=== PATIENT | male | born 1985 | race Caucasian/White ===

== ENCOUNTER 2021-04-16 18:52 | Emergency (ER) | payer MEDICARE, MEDICAID, SELFPAY ==
--- NOTE | ~2021-04-16 | XR_ITS ---
XR chest 1V portable DATE: 04/16/2021 19:26 INDICATION: Shortness of breath, fever, chills TECHNIQUE: Portable upright AP chest on 04/16/2021 at 1918 hours COMPARISON: None FINDINGS: This is a limited portable kyphotic AP chest. No pulmonary infiltrate or consolidation, pleural effusion or pulmonary vascular congestion or pneumo thorax is detected. There is thoracolumbar scoliosis. IMPRESSION: No active disease detected Reviewed, dictated and finalized at location A. IMPRESSION: No active disease detected
[2021-04-16 18:50] VITALS: BP 109/68; PULSE 128; RESP 22; TEMP 39.2; O2SAT 95
[2021-04-16 19:37] LABS: Basophils Percent Auto 0.5 % (0.2-1.2); Hematocrit 39.5 % (42.0-52.0); Hemoglobin 13.4 g/dL (14.0-18.0); Immature Granulocyte Absolute 0.01 K/mm3 (0.00-0.031); Immature Granulocyte Percent A 0.5 % (0-0.5); Lymphocytes Absolute Auto 0.32 K/mm3 (0.9-3.2); Lymphocytes Percent Auto 16.3 % (18.3-44.2); Mean Corpuscular HGB Conc 33.9 g/dl (32-36); Mean Corpuscular Hemoglobin 30.3 pg (26-34); Mean Corpuscular Volume 89.4 fl (80-100); Mean Platelet Volume 9.7 fl (7.4-10.4); Monocytes Absolute Auto 0.2 K/mm3 (0.1-0.6); Monocytes Percent Auto 8.7 % (2.6-8.5); Neutrophils Absolute Auto 1.5 K/mm3 (1.3-6.7); Platelet Count Result 112 k/mm3 (150-375); Red Blood Count 4.42 M/mm3 (4.6-6.20); Red Cell Distribution Width 11.9 % (11.5-14.5)
[2021-04-16 19:43] VITALS: BP 110/71; PULSE 111; RESP 20; O2SAT 96
[2021-04-16 19:46] LABS: Alanine Aminotransferase 24 U/L (4-50); Albumin Level 3.8 g/dL (3.5-5.1); Alkaline Phosphatase 45 U/L (38-126); Anion Gap 5 mmol/L (8-16); Aspartate Amino Transferase 54 U/L (17-59); Bilirubin,Total 0.8 mg/dL (0.2-1.3); Blood Urea Nitrogen 25 mg/dL (9-20); Calcium 8.2 mg/dL (8.4-10.2); Carbon Dioxide 27 mmol/L (22-30); Chloride 103 mmol/L (98-107); Estimated Glomerular Filt Rate > 60; Glucose 130 mg/dL (65-110); Potassium 4.3 mmol/L (3.4-5.0); Sodium 135 mmol/L (137-145)
[2021-04-16 19:59] LABS: CRP 1.9 mg/dL (<1.0)
[2021-04-16 20:11] LABS: EDCOVIDSCREEN Positive (Negative)
[2021-04-16 20:40] VITALS: BP 101/72; PULSE 101; RESP 20; TEMP 37.4; O2SAT 97
--- NOTE | 2021-04-16 21:31 | ED.GENADULT ---
HPI - General Adult General Chief complaint: Upper Respiratory Infection Stated complaint: covid + Time Seen by Provider: 04/16/21 18:53 Source: family Mode of arrival: EMS Limitations: clinical condition History of Present Illness HPI narrative: 35-year-old with a history of autism was brought in by mom with complaints of weakness, shortness of breath. Mom states that he was having Covid symptoms since Wednesday she went and got outpatient testing kit from [facility] and he was positive. Patient has not been vaccinated. Patient denies any chest pain has occasional cough. No history of nausea or vomiting. Mom states that he does not eat on a daily basis he once in every 5 days. But however she make sure that he gets milkshakes and peanut butter. Onset (ago): day(s) (1) Associated symptoms: fever/chills Related Data Home Medications Medication Instructions Recorded Confirmed azithromycin 04/16/21 04/16/21 escitalopram oxalate mg 04/16/21 Allergies Allergy/AdvReac Type Severity Reaction Status Date / Time Penicillins Allergy Rash Verified 04/16/21 19:07 Review of Systems Review of Systems: ROS unobtainable: Yes unobtainable due to medical condition Exam Narrative: GENERAL: Well-appearing, thin and pale, and in no acute distress. HEAD: Normocephalic, atraumatic. EYES: PERRLA and EOMI. ENT: Nares clear, no rhinorrhea or epistaxis. Mucous membranes moist. NECK: Supple. CHEST: Clear to auscultation. No respiratory distress. HEART: Regular rate and rhythm. No murmur heard. Normal peripheral pulses. ABDOMEN: Soft, nontender, nondistended, normal active bowel sounds. EXTREMITIES: Normal range of motion. No edema.marked scoliosis SKIN: Warm, dry, no rash. NEURO: No focal deficits. PSYCH: Normal mood and affect. Course Course Emergency Course: Inform mother about his lab work, x-ray findings. His heart rate has come down from 120s to 87. He is feeling much better after IV fluids and Tylenol. Advised her to continue Tylenol as needed for fever. Encourage oral liquids. Vital Signs Vital signs: Vital Signs Temperature 39.2 C H 04/16/21 18:50 Pulse Rate 128 H 04/16/21 18:50 Respiratory Rate 22 H 04/16/21 18:50 Blood Pressure 109/68 04/16/21 18:50 Pulse Oximetry 95 04/16/21 18:50 Temperature 37.4 C 04/16/21 20:40 Pulse Rate 101 H 04/16/21 20:40 Respiratory Rate 20 04/16/21 20:40 Blood Pressure 101/72 04/16/21 20:40 Pulse Oximetry 97 04/16/21 20:40 Medical Decision Making Vital Signs Vital Signs: Vital Signs Temperature 39.2 C H 04/16/21 18:50 Pulse Rate 128 H 04/16/21 18:50 Respiratory Rate 22 H 04/16/21 18:50 Blood Pressure 109/68 04/16/21 18:50 Pulse Oximetry 95 04/16/21 18:50 Temperature 37.4 C 04/16/21 20:40 Pulse Rate 101 H 04/16/21 20:40 Respiratory Rate 20 04/16/21 20:40 Blood Pressure 101/72 04/16/21 20:40 Pulse Oximetry 97 04/16/21 20:40 Lab Data Result diagrams: 04/16/21 19:28 04/16/21 19:28 Labs: Lab Results 04/16/21 04/16/21 04/16/21 Range/Units 19:28 19:28 19:28 WBC 2.0 L (4.5-10.0) K/mm3 RBC 4.42 L (4.6-6.20) M/mm3 Hgb 13.4 L (14.0-18.0) g/dL Hct 39.5 L (42.0-52.0) % MCV 89.4 (80-100) fl MCH 30.3 (26-34) pg MCHC 33.9 (32-36) g/dl RDW 11.9 (11.5-14.5) % Plt Count 112 L (150-375) k/mm3 MPV 9.7 (7.4-10.4) fl Immature Gran % (Auto) 0.5 (0-0.5) % Neut % (Auto) 74.0 H (45.5-73.1) % Lymph % (Auto) 16.3 L (18.3-44.2) % [place] % (Auto) 8.7 H (2.6-8.5) % Eos % (Auto) 0.0 (0-4.4) % Baso % (Auto) 0.5 (0.2-1.2) % Lymph # (Auto) 0.32 L (0.9-3.2) K/mm3 [place] # (Auto) 0.2 (0.1-0.6) K/mm3 Eos # (Auto) 0.0 (0-0.3) K/mm3 Baso # (Auto) 0.0 (0.0-0.1) K/mm3 Abs Immat Gran (auto) 0.01 (0.00-0.031) K/mm3 Absolute Neuts (auto) 1.5 (1.3-6.7) K/mm3 Absolute Nucleated RBC 0.0 (0.0-0.012) K/mm3 Nu
[2021-04-16 21:40] VITALS: BP 110/70; PULSE 87; RESP 20; O2SAT 99
== END 2021-04-17 01:16 | disposition home or self-care (01) ==
PROVIDERS: Emergency Provider Family Medicine; PCP Internal Medicine
DX: U07.1 COVID-19 (principal); F84.0 Autistic disorder
CPT/HCPCS: 36415; 71045; 80053; 85025; 86140; 87426; 99283; C9803

== ENCOUNTER 2024-01-31 14:44 | Emergency (ER) | payer MEDICARE, MEDICAID, SELFPAY ==
--- NOTE | ~2024-01-31 | XR_ITS ---
EXAM: XR tibia fibula LT 2V DATE: 01/31/2024 17:42 HISTORY: cellulitis, wound on posterior lower leg near ankle . COMPARISON: None available. FINDINGS: Normal mineralization. No fracture or dislocation. No lytic or blastic lesion. Joint space s are maintained. No erosion or periosteal change. Soft tissues within normal limits. The posterior l ower leg soft tissues are excluded from the [id number]. IMPRESSION: No acute osseous finding in the left tibia/fibula. Reviewed, dictated and finalized at location K.
[2024-01-31 14:45] VITALS: BP 124/72; PULSE 94; RESP 16; TEMP 37.1; O2SAT 100
--- NOTE | 2024-01-31 17:23 | ED.WOUNDLAC ---
HPI - Wound/Laceration General Chief Complaint: Wound/Laceration Stated Complaint: wound to left leg Time Seen by Provider: 01/31/24 17:01 History of Present Illness HPI narrative: 38-year-old male with history of autism in OCD presents with his mother/linecasting machine keyboard operator who presents from home with concerns for a wound to his left leg for 3 weeks. Patient's mother provides the following history. States a few weeks ago she noticed the patient had a wound to the back of his left lower leg which she believes he may have gotten from scratching his leg with his toenails. States she went to urgent care on 01/23/2024 and was prescribed Keflex with the patient has been taking without improvement. States she believes that the wound is getting worse. It is now draining clear yellow fluid. She also states that yesterday the patient broke out in a diffuse itchy rash throughout his chest, abdomen and upper extremities. She gave him Benadryl believes it is secondary to the Keflex. He does have an allergy to penicillins. Patient states he otherwise feels fine. He and his mother deny fever, nausea or vomiting, abdominal pain, other signs or symptoms of infection. Related Data Home Medications Medication Instructions Recorded Confirmed azithromycin 250 mg tablet 04/16/21 04/16/21 escitalopram oxalate 10 mg tablet mg 04/16/21 Allergies Allergy/AdvReac Type Severity Reaction Status Date / Time Penicillins Allergy Rash Verified 04/16/21 19:07 Review of Systems Review of Systems: CONSTITUTIONAL: Denies fever, chills, or sweats. EYES: Denies visual changes, redness, or discharge. ENT: Denies rhinorrhea, congestion, sore throat, or otalgia. CARDIOVASCULAR: Denies chest pain, palpitations, or edema. RESPIRATORY: Denies cough or dyspnea. GASTROINTESTINAL: Denies abdominal pain, nausea, vomiting, or diarrhea. GENITOURINARY: Denies dysuria or hematuria. SKIN: See HPI MUSCULOSKELETAL: Denies back pain, joint pain, or myalgia. NEUROLOGIC: Denies headache, numbness, or weakness. PSYCHIATRIC: Denies anxiety or depression. Exam Narrative: GENERAL: Well-appearing, well-nourished, and in no acute distress. HEAD: Normocephalic, atraumatic. EYES: PERRLA and EOMI. ENT: Nares clear, no rhinorrhea or epistaxis. Mucous membranes moist. NECK: Supple. CHEST: Clear to auscultation. No respiratory distress. HEART: Regular rate and rhythm. No murmur heard. Normal peripheral pulses. ABDOMEN: Soft, nontender, nondistended, normal active bowel sounds. EXTREMITIES: Normal range of motion. No edema. SKIN: Stage II ulceration measuring approximately 3 cm to the posterior aspect of the distal tibia with clear serous drainage. There is surrounding warmth and erythema throughout the distal posterior can a that wraps around to the anterior aspect of the calf. Left leg is warmer when compared to the right. He does have brawny skin changes to the anterior aspect of the tib fibs bilaterally which patient's mother states is chronic. Left DP pulses 2+. Sensation intact. No vesicles or crepitus. Diffuse macular papular rash to the chest, abdomen and upper extremities, itchy. No vesicles, negative [place]. No warmth, no drainage. NEURO: No focal deficits. Alert and oriented x3 Course Vital Signs Vital signs: Vital Signs Temperature 98.7 F 01/31/24 14:45 Pulse Rate 94 01/31/24 14:45 Respiratory Rate 16 01/31/24 14:45 Blood Pressure 124/72 01/31/24 14:45 Pulse Oximetry 100 01/31/24 14:45 Oxygen Delivery Room Air 01/31/24 14:45 Temperature 98.7 F 01/31/24 14:45 Pulse Rate 94 01/31/24 14:45 Respiratory Rate 16 01/31/24 14:45 Blood Pressure 124/72 01/31/24 14:45 Pulse Oximetry 100 01/31/24 14:45 Oxygen Delivery Room Air 01/31/24 14:45 MDM - Wound/Laceration MDM Narrative Medical decision making narrative: 38-year-old male with history of autism in OCT presents with his mother/linecasting machine keyboard operator at bedside for concerns for
[2024-01-31] MEDS: diphenhydrAMINE HCl INJ 50 MG/ML VIAL 25 MG IV PUSH (17:31)
[2024-01-31] MEDS: FAMOTIDINE 20 MG/2 ML VIAL IV PUSH (17:31)
[2024-01-31 17:34] LABS: Basophils Absolute Auto 0.1 K/mm3 (0.0-0.1); Basophils Percent Auto 1.3 % (0.2-1.2); Eosinophils Absolute Auto 0.5 K/mm3 (0-0.3); Eosinophils Percent Auto 9.6 % (0-4.4); Hematocrit 39.1 % (42.0-52.0); Hemoglobin 12.7 g/dL (14.0-18.0); Immature Granulocyte Absolute 0.01 K/mm3 (0.00-0.031); Immature Granulocyte Percent A 0.2 % (0-0.5); Lymphocytes Absolute Auto 1.34 K/mm3 (0.9-3.2); Lymphocytes Percent Auto 28.5 % (18.3-44.2); Mean Corpuscular HGB Conc 32.5 g/dl (32-36); Mean Corpuscular Hemoglobin 30.2 pg (26-34); Mean Corpuscular Volume 92.9 fl (80-100); Mean Platelet Volume 10.7 fl (7.4-10.4); Monocytes Absolute Auto 0.7 K/mm3 (0.1-0.6); Monocytes Percent Auto 14.9 % (2.6-8.5); Neutrophils Absolute Auto 2.1 K/mm3 (1.3-6.7); Neutrophils Percent Auto 45.5 % (45.5-73.1); Platelet Count Result 266 k/mm3 (150-375); Red Blood Count 4.21 M/mm3 (4.6-6.20); Red Cell Distribution Width 12.4 % (11.5-14.5); White Blood Count 4.7 K/mm3 (4.5-10.0)
[2024-01-31] MEDS: methylPREDNISolone SOD SUCC 125 MG VIAL IV PUSH (17:40)
[2024-01-31] MEDS: CLINDAMYCIN 900 MG/D5W 50 ML 900 MG/50 ML PIGGYBACK 50 MG IVPB (17:48)
[2024-01-31 17:49] LABS: Alanine Aminotransferase 17 U/L (6-50); Albumin Level 4.2 g/dL (3.5-5.1); Alkaline Phosphatase 70 U/L (38-126); Anion Gap 4 mmol/L (4-12); Aspartate Amino Transferase 24 U/L (17-59); Bilirubin,Total 0.7 mg/dL (0.2-1.3); Blood Urea Nitrogen 20 mg/dL (9-20); CRP < 0.5 mg/dL (<1.0); Calcium 9.5 mg/dL (8.4-10.2); Carbon Dioxide 34 mmol/L (22-30); Chloride 104 mmol/L (98-107); Estimated CRCL calculation 86 ml/min; Estimated Glomerular Filt Rate > 60; Glucose 80 mg/dL (65-110); Sodium 142 mmol/L (137-145)
[2024-01-31 18:16] LABS: Erythrocyte Sedimentation Rate 44 mm/hr (0-20)
[2024-01-31 18:55] VITALS: BP 116/54; PULSE 88; RESP 16; O2SAT 100
== END 2024-01-31 18:50 | disposition home or self-care (01) ==
PROVIDERS: Emergency Provider Physician Assistant; PCP Internal Medicine
DX: L03.116 Cellulitis of left lower limb (principal); L97.929 Non-pressure chronic ulcer of unspecified part of left lower leg with unspecified severity; T78.40XA Allergy, unspecified, initial encounter; F84.0 Autistic disorder
CPT/HCPCS: 36415; 73590; 80053; 85025; 85652; 86140; 96365; 96375; 99284; J1200; J2919

== ENCOUNTER 2024-03-02 14:45 | Inpatient (IN) | payer MEDICARE, MEDICAID, SELFPAY ==
--- NOTE | ~2024-03-02 | CT_ITS ---
CTA chest PE protocol Ordering provider: Christy Diaz PA-C History: 38 years Male with . lower extremity edema, elevated dimer, tachycardia . Comparison: None. Technique: CT angiogram chest was performed following timed intravenous injection of contrast. Thin s lice axial images and reformatted coronal images were obtained. Three dimensional reformatted images of the chest were also obtained using a [employer] workstation. . Automated exposure control and iterati ve reconstruction technique were employed. The dose-length product was 202.75 mGy-cm. 100 mL of Omnip aque 350 was given IV. Findings: PULMONARY ARTERIES: No pulmonary embolus. VISUALIZED THORACIC INLET: Normal. MEDIASTINUM: Aorta/coronary arteries: Mild atheromatous disease. Aberrant right subclavian artery. Heart/other: The heart is not enlarged. Lymph nodes: No mediastinal or hilar adenopathy. LUNGS: No pulmonary nodules or masses. No infiltrates or effusions. No pneumothorax. VISUALIZED UPPER ABDOMEN: Grossly distended stomach with fluids. Otherwise, the visualized upper abdo men is normal. MUSCULOSKELETAL: Soft tissues: The superficial soft tissues are normal. Bones: Age appropriate degenerative changes of the spine. Levoscoliosis. IMPRESSION: 1. No pulmonary embolism or dissection. 2. Grossly distended stomach with fluid surrounding the aorta. 3. Aberrant right subclavian artery. 4. Levoscoliosis. Reviewed, dictated and finalized at location A.
--- NOTE | ~2024-03-02 | US_ITS ---
EXAMINATION: US venous doppler [facility] DATE: 03/03/2024 11:13 INDICATION: Left lower limb edema. Left lower limb pain. TECHNIQUE: Grayscale ultrasound images without and with compression and Doppler ultrasound images of the left lower extremity veins were obtained. COMPARISON: None. FINDINGS: The visualized portions of left common femoral vein, profunda (deep) femoral vein, femoral vein, popl iteal vein, peroneal veins, posterior tibial veins, and greater saphenous vein outflow are patent. IMPRESSION: 1. No deep venous thrombosis. Reviewed, dictated and finalized at location A.
[2024-03-02 14:46] VITALS: BP 146/100; PULSE 135; RESP 18; TEMP 37.3; O2SAT 97
[2024-03-02 15:00] VITALS: BP 135/86; PULSE 133; RESP 20; O2SAT 100
--- NOTE | 2024-03-02 15:34 | ED.SKABFB ---
HPI - Skin/Abscess/Foreign Bdy General Chief complaint: Skin/Abscess/Foreign Body Stated complaint: Rash/wound Time Seen by Provider: 03/02/24 15:13 Source: patient and family Mode of arrival: EMS Limitations: other History of Present Illness HPI narrative: This is a 38-year-old male that presents to the emergency department for a wound to left lower extremity. Mom reports he has been struggling with this for the last several months. Has been on a couple of rounds of antibiotics. Reports worsening again over the last several days. Denies fevers or drainage. Related Data Allergies Allergy/AdvReac Type Severity Reaction Status Date / Time Penicillins Allergy Rash Verified 04/16/21 19:07 Review of Systems Review of Systems: CONSTITUTIONAL: Denies fever CARDIOVASCULAR: Denies chest pain RESPIRATORY: Denies dyspnea. SKIN: Reports redness and swelling All systems reviewed & are unremarkable except as noted in HPI and below PMFSH Past Medical History Medical History (Updated 03/09/24 @ 17:22 by Christy Diaz PA-C) Autism Chronic stasis dermatitis History of autism Lipodermatosclerosis Social History Social History (Updated 03/02/24 @ 18:44 by Christy Diaz PA-C) Smoking status: Never smoker Alcohol intake: never Substance use: never Do You Feel Safe in your Home?: Yes Lack of Transportation: No Lack of Food: Never True Current Housing: I Have Housing Concerned About Future Housing: No Difficulty Paying Gas/Electric Bills: No Difficulty Paying for Meds: No Currently Unemployed: No Education: Decline to Answer Difficulty w/ Childcare or Family Care: No Spiritual care concerns: No Exam Narrative: GENERAL: Well-appearing, well-nourished, and in no acute distress. HEAD: Normocephalic, atraumatic. EYES: EOMI. CHEST: Clear to auscultation. No respiratory distress. No wheezes rales or rhonchi HEART: Regular rate and rhythm. No murmur heard. Normal peripheral pulses. EXTREMITIES: Normal range of motion. Ulcerating lesions to the left lower leg posteriorly with overlying erythema and edema that extends into the foot and into the mid lower leg. Normal DP pulse. Normal sensation SKIN: Warm, dry, no rash. NEURO: No focal deficits. Alert and oriented x3. PSYCH: Normal mood and affect Course Course Emergency Course: Patient and family updated on workup and need for admission for further evaluation/management Consultations Consultation #1: Spoke with hospitalist about patient and workup who accepts admission Date: 03/02/24 Vital Signs Vital signs: Vital Signs Temperature 99.2 F 03/02/24 14:46 Pulse Rate 135 H 03/02/24 14:46 Respiratory Rate 18 03/02/24 14:46 Blood Pressure 146/100 H 03/02/24 14:46 Pulse Oximetry 97 03/02/24 14:46 Oxygen Delivery Room Air 03/02/24 14:46 Temperature 98.2 F 03/06/24 14:00 Pulse Rate 87 03/06/24 14:00 Respiratory Rate 14 03/06/24 14:00 Blood Pressure 129/96 H 03/06/24 14:00 Pulse Oximetry 100 03/06/24 14:00 Oxygen Delivery Room Air 03/05/24 20:00 MDM - Skin/Abscess/Foreign Bdy MDM Narrative Medical decision making narrative: Patient presents to the emergency department for left lower extremity wound. Mother reports he has been struggling with this for the last several months. Patient is afebrile. Tachycardic into the 130s upon arrival, this improved to the 1 teens with hydration. Blood pressure is stable. Cbc without leukocytosis. Inflammatory markers are elevated. D-dimer also elevated. CTA of the chest obtained and US ordered for the morning for further evaluation due to persistent tachycardia. Spoke with hospitalist about patient and workup who accepts admission. Blood cultures drawn and patient started on IV antibiotics Differential Diagnosis Differential diagnosis: Likely abscess of skin or subcutaneous tissue, cellulitis and other (DVT, PE) Lab Data Attestation: I reviewed the patient's lab results. 03/03/24 06:56 03/03/24 06:56 Labs: Lab Results 03/02/24 03/02/24 03/02/24 Range/Units 15:47 17:46 20:39 WBC 5.6 (4.5-10.0) K/mm3 RBC 4.19 L (4.6-6.20) M/mm3 Hgb 12.6 L (14.0-18.0) g/dL Hct 37.4 L (42.0-52.0) % MCV 89.3 (80-100) fl MCH 30.1 (26-34) pg MCHC 33.7 (32-36) g/dl RDW 12.2 (11.5-14.5) % Plt Count 351 (150-375) k/mm3 MPV 10.4 (7.4-10.4) fl Immature Gran % (Auto) 0.2 (0-0.5) % Neut % (Auto) 66.6 (45.5-73.1) % Lymph % (Auto) 13.9 L (18.3-44.2) % [place] % (Auto) 12.1 H (2.6-8.5) % Eos % (Auto) 6.0 H (0-4.4) % Baso % (Auto) 1.2 (0.2-1.2) % Lymph # (Auto) 0.78 L (0.9-3.2) K/mm3 [place] # (Auto) 0.7 H (0.1-0.6) K/mm3 Eos # (Auto) 0.3 (0-0.3) K/mm3 Baso # (Auto) 0.1 (0.0-0.1) K/mm3 Abs Immat Gran (auto) 0.01 (0.00-0.031) K/mm3 Absolute Neuts (auto) 3.8 (1.3-6.7) K/mm3 Absolute Nucleated RBC 0.000 (0.0-0.012) K/mm3 Nucleated RBC % 0.0 (0.0-0.2) % ESR 53 H (0-20) mm/hr D-Dimer 0.66 H (<0.48) ug/mL Sodium 140 (137-145) mmol/L Potassium 4.2 (3.4-5.0) mmol/L Chloride 96 L (98-107) mmol/L Carbon Dioxide 35 H (22-30) mmol/L Anion Gap 9 (4-12) mmol/L BUN 28 H (9-20) mg/dL Creatinine 0.70 (0.7-1.3) mg/dL Estim Creat Clear Calc 88 ml/min Estimated GFR > 60 (59 - ) Glucose 171 H (65-110) mg/dL Hemoglobin A1c 4.9 (<5.7) % Lactic Acid 5.3 H* 2.9 H (0.7-2.0) mmol/L Calcium 9.2 (8.4-10.2) mg/dL Magnesium (1.6-2.3) mg/dL C-Reactive Protein 1.8 H (<1.0) mg/dL 03/03/24 Range/Units 06:56 WBC 4.9 (4.5-10.0) K/mm3 RBC 3.55 L (4.6-6.20) M/mm3 Hgb 10.7 L (14.0-18.0) g/dL Hct 31.9 L (42.0-52.0) % MCV 89.9 (80-100) fl MCH 30.1 (26-34) pg MCHC 33.5 (32-36) g/dl RDW 12.2 (11.5-14.5) % Plt Count 278 (150-375) k/mm3 MPV 10.1 (7.4-10.4) fl Immature Gran % (Auto) 0.2 (0-0.5) % Neut % (Auto) 42.7 L (45.5-73.1) % Lymph % (Auto) 29.7 (18.3-44.2) % [place] % (Auto) 12.8 H (2.6-8.5) % Eos % (Auto) 13.6 H (0-4.4) % Baso % (Auto) 1.0 (0.2-1.2) % Lymph # (Auto) 1.46 (0.9-3.2) K/mm3 [place] # (Auto) 0.6 (0.1-0.6) K/mm3 Eos # (Auto) 0.7 H (0-0.3) K/mm3 Baso # (Auto) 0.1 (0.0-0.1) K/mm3 Abs Immat Gran (auto) 0.01 (0.00-0.031) K/mm3 Absolute Neuts (auto) 2.1 (1.3-6.7) K/mm3 Absolute Nucleated RBC 0.000 (0.0-0.012) K/mm3 Nucleated RBC % 0.0 (0.0-0.2) % ESR (0-20) mm/hr D-Dimer (<0.48) ug/mL Sodium 137 (137-145) mmol/L Potassium 4.3 (3.4-5.0) mmol/L Chloride 110 H (98-107) mmol/L Carbon Dioxide 24 (22-30) mmol/L Anion Gap 3 L (4-12) mmol/L BUN 12 D (9-20) mg/dL Creatinine 0.50 L (0.7-1.3) mg/dL Estim Creat Clear Calc 119 ml/min Estimated GFR > 60 (59 - ) Glucose 85 (65-110) mg/dL Hemoglobin A1c (<5.7) % Lactic Acid 1.2 (0.7-2.0) mmol/L Calcium 8.3 L (8.4-10.2) mg/dL Magnesium 2.2 (1.6-2.3) mg/dL C-Reactive Protein (<1.0) mg/dL Critical Care Time Critical Care Time Critical Care Time: Yes Total Critical Care Time: 35 Discharge Plan Discharge Clinical Impression: Lactic acidosis, Tachycardia Cellulitis Qualifiers: Site of cellulitis: extremity Site of cellulitis of extremity: lower extremity Laterality: left Qualified Code(s): L03.116 - Cellulitis of left lower limb Patient Disposition: Still a Patient Condition: Stable
[2024-03-02 15:53] LABS: Basophils Absolute Auto 0.1 K/mm3 (0.0-0.1); Basophils Percent Auto 1.2 % (0.2-1.2); Eosinophils Absolute Auto 0.3 K/mm3 (0-0.3); Hematocrit 37.4 % (42.0-52.0); Hemoglobin 12.6 g/dL (14.0-18.0); Immature Granulocyte Absolute 0.01 K/mm3 (0.00-0.031); Immature Granulocyte Percent A 0.2 % (0-0.5); Lymphocytes Absolute Auto 0.78 K/mm3 (0.9-3.2); Lymphocytes Percent Auto 13.9 % (18.3-44.2); Mean Corpuscular HGB Conc 33.7 g/dl (32-36); Mean Corpuscular Hemoglobin 30.1 pg (26-34); Mean Corpuscular Volume 89.3 fl (80-100); Mean Platelet Volume 10.4 fl (7.4-10.4); Monocytes Absolute Auto 0.7 K/mm3 (0.1-0.6); Monocytes Percent Auto 12.1 % (2.6-8.5); Neutrophils Absolute Auto 3.8 K/mm3 (1.3-6.7); Neutrophils Percent Auto 66.6 % (45.5-73.1); Platelet Count Result 351 k/mm3 (150-375); Red Blood Count 4.19 M/mm3 (4.6-6.20); Red Cell Distribution Width 12.2 % (11.5-14.5); White Blood Count 5.6 K/mm3 (4.5-10.0)
[2024-03-02 16:00] VITALS: BP 133/76; PULSE 131; RESP 20; O2SAT 98
[2024-03-02 16:04] LABS: Lactic Acid Reflex 5.3 mmol/L (0.7-2.0)
[2024-03-02 16:05] LABS: Anion Gap 9 mmol/L (4-12); Blood Urea Nitrogen 28 mg/dL (9-20); CRP 1.8 mg/dL (<1.0); Calcium 9.2 mg/dL (8.4-10.2); Carbon Dioxide 35 mmol/L (22-30); Chloride 96 mmol/L (98-107); Estimated CRCL calculation 88 ml/min; Estimated Glomerular Filt Rate > 60; Glucose 171 mg/dL (65-110); Potassium 4.2 mmol/L (3.4-5.0); Sodium 140 mmol/L (137-145)
[2024-03-02] MEDS: SODIUM CHLORIDE 0.9% IV 1,000 ML 999 ML IV CONT ×2 (16:27→16:28)
[2024-03-02 17:00] VITALS: BP 130/74; PULSE 118; RESP 20; O2SAT 100
[2024-03-02 17:09] LABS: Erythrocyte Sedimentation Rate 53 mm/hr (0-20)
[2024-03-02 17:42] LABS: Hemoglobin A1C 4.9 % (<5.7)
[2024-03-02] MEDS: metroNIDAZOLE 500 MG/ISO 100ML 500 MG/100 ML BAG 100 MG IVPB (17:46)
[2024-03-02 18:06] LABS: D Dimer 0.66 ug/mL (<0.48)
[2024-03-02 18:51] LABS: Reflex Lactic Acid Yes or No Add Lactic
[2024-03-02 19:15] VITALS: BP 133/87; PULSE 113; RESP 16; TEMP 36.8; O2SAT 96
--- NOTE | 2024-03-02 19:44 | ADMGEN ---
This patient, Gelacio Asif, was admitted to 3 [facility] Surg Room 309-01. Patient/family oriented to hospital policies and general routines including ID bracelet, bed and alarms, visiting hours, pain management, procedures, bathroom and other care routines, personal items, smoking policy, room service/diet, and visiting hours. Information on how to activate the Rapid Response Team has been discussed. Patient/Family are encouraged to report perceived risks to care and to ask questions if they do not understand what they are told or what they should do.
[2024-03-02] MEDS: levoFLOXacin 750 MG/D5W 150 ML 750 MG/150 ML BAG 100 MG IVPB (20:45)
[2024-03-02 20:56] LABS: Lactic Acid 2.9 mmol/L (0.7-2.0)
--- NOTE | 2024-03-02 22:08 | PM.IMHP ---
H&P: HPI History of Present Illness Date/Time: 03/02/24 22:08 Chief Complaint: infected leg wound Narrative: A pleasant 38M with autism w/ PMH brought in by his mother a retired wound care nurse complaining of worsening infected wound of the left lower extremity. On January 22 there was possibly bug bite and since then it appeared infected and received Keflex. A few weeks ago the wound was getting worse so they went to the ER and received clindamycin. It still has not improved. Redness and swelling and open wound on his right calf are worse, there is large serous drainage as well. She has been putting Adaptic on it Patient complains it is somewhat painful. He also has hyperpigmentation of his lower extremities, he stands for 20 hours a day. Review of Systems Review of Systems: All systems reviewed & are unremarkable except as noted in HPI and below (subjective) PMFSH Past Medical History Medical History (Updated 03/02/24 @ 23:42 by Sowmya Vallejo MD) Autism Chronic stasis dermatitis History of autism Lipodermatosclerosis Social History Social History (Updated 03/02/24 @ 18:44 by Christy Diaz PA-C) Smoking status: Never smoker Alcohol intake: never Substance use: never Do You Feel Safe in your Home?: Yes Lack of Transportation: No Lack of Food: Never True Current Housing: I Have Housing Concerned About Future Housing: No Difficulty Paying Gas/Electric Bills: No Difficulty Paying for Meds: No Currently Unemployed: No Education: Decline to Answer Difficulty w/ Childcare or Family Care: No Spiritual care concerns: No Meds Home Medications and Allergies Home Medications Medication Instructions Recorded Confirmed Type No Home Medications 03/02/24 03/02/24 History Allergies Allergy/AdvReac Type Severity Reaction Status Date / Time Penicillins Allergy Rash Verified 04/16/21 19:07 Vital Signs Vital Signs - 24 hr 03/02/24 14:46 03/02/24 15:00 03/02/24 16:00 Temperature 99.2 F Pulse Rate 135 H 133 H 131 H Respiratory Rate 18 20 20 Blood Pressure 146/100 H 135/86 133/76 Pulse Oximetry 97 100 98 Oxygen Delivery Room Air 03/02/24 17:00 03/02/24 19:15 Temperature 98.2 F Pulse Rate 118 H 113 H Respiratory Rate 20 16 Blood Pressure 130/74 133/87 Pulse Oximetry 100 96 Oxygen Delivery Exam Const: General: comfortable and no acute distress Eyes: Pupils: Equal, round and reactive pupils present Neck: Neck: supple Resp: Effort & Inspection: normal respiratory effort Auscultation: clear to auscultation bilaterally Cardio: Rate: regular rate Rhythm: regular rhythm Heart sounds: no gallops, no murmurs and no rubs GI: GI Palp: Yes Soft to palpation and No Tenderness to palpation present (GI) Extrem: Other: RLE lipodermatosclerosis LLE lipodermatosclerosis, warmth, erythema with sloughing wound dorsum of foot, and large ulcer on posterior calf pedal pulses palpable H&P: Results Labs Labs: Short CBC 03/02/24 Range/Units 15:47 WBC 5.6 (4.5-10.0) K/mm3 Hgb 12.6 L (14.0-18.0) g/dL Hct 37.4 L (42.0-52.0) % Plt Count 351 (150-375) k/mm3 BMP 03/02/24 15:47 Sodium 140 Potassium 4.2 Chloride 96 L Carbon Dioxide 35 H BUN 28 H Creatinine 0.70 Glucose 171 H Calcium 9.2 Assessment and Plan Assessment and plan (1) Venous ulcer: Code(s): I83.009 - Varicose veins of unspecified lower extremity with ulcer of unspecified site; L97.909 - Non-pressure chronic ulcer of unspecified part of unspecified lower leg with unspecified severity Status: Acute (2) Cellulitis: Qualifiers: Laterality: left Site of cellulitis: extremity Site of cellulitis of extremity: lower extremity Qualified Code(s): L03.116 - Cellulitis of left lower limb Code(s): L03.90 - Cellulitis, unspecified Status: Acute (3) Tachycardia: Code(s): R00.0 - Tachycardia, unspecified Status: Acute (4) Lactic acidosis: Code(s): E87.20 - Acidosis, unspecified Status: Acute (5) Autism: Code(s): F84.0 - Autistic disorder Status: Acute (6) Chronic stasis dermatitis: Code(s): I87.2 - Venous insufficiency (chronic) (peripheral) Status: Inactive (7) Lipodermatosclerosis: Code(s): M79.3 - Panniculitis, unspecified Status: Acute Plan A pleasant 38M with autism, levoscoliosis w/ PMH brought in by his mother a retired wound care nurse complaining of worsening infected wound of the left lower extremity. On January 22 there was possibly bug bite and since then it appeared infected and received Keflex. A few weeks ago the wound was getting worse so they went to the ER and received clindamycin. It still has not improved. Redness and swelling and open wound on his right calf are worse, there is large serous drainage as well. She has been putting Adaptic on it Patient complains it is somewhat painful. He also has hyperpigmentation of his lower extremities, he stands for 20 hours a day. ER evaluation revealed lactic acid 5.3 now to 2.9 after 2 L isotonic saline bolus. Doppler ultrasound pending. D-dimer 0.66 and therefore CTA chest was performed. Demonstrated no PE but grossly distended stomach with fluid surrounding the aorta and aberrant right subclavian artery. Admitted on 03/02/2024 for failure of outpatient treatment for cellulitis. The patient stands on his feet for 20 hours a day and he even sleeps does legs hanging off the bed. Educated on elevation of legs. Consult Wound Care for venous ulcer. Continue levofloxacin for superimposed infection. Venous Doppler pending. Lactic acidosis is improved, continue to trend. Sinus tachycardia has improved, likely due to lactic acidosis due to infection. Blood cultures pending. The patient has an odd eating pattern due to his autism. He will not eat for days and then when he decides to eat he will binge. For instance, today he drink 14 bottles of Ensure. On the CTA of abdomen there is a large fluid-filled stomach with likely local 3rd spacing. Patient is very pleasant but unaware of how to manage his food. Mother reports he has even been making himself vomited few times a week after he ate so much food. They do not have a PCP, advised follow-up and closer management of autism and food intake disorder. Random blood glucose 171 on arrival, hemoglobin A1c 4.9%. Full code. Heparin subQ 5000 units b.i.d.. Wound care consulted. Dietitian consulted. Anticipate discharge to home.
[2024-03-03] VITALS (9 sets, daily range): BP systolic 102–110; BP diastolic 54–64; PULSE 56–102; RESP 14–16; TEMP 36.1–36.8; O2SAT 99–100; BMI 19.4
[2024-03-03 07:04] LABS: Basophils Absolute Auto 0.1 K/mm3 (0.0-0.1); Eosinophils Absolute Auto 0.7 K/mm3 (0-0.3); Eosinophils Percent Auto 13.6 % (0-4.4); Hematocrit 31.9 % (42.0-52.0); Hemoglobin 10.7 g/dL (14.0-18.0); Immature Granulocyte Absolute 0.01 K/mm3 (0.00-0.031); Immature Granulocyte Percent A 0.2 % (0-0.5); Lymphocytes Absolute Auto 1.46 K/mm3 (0.9-3.2); Lymphocytes Percent Auto 29.7 % (18.3-44.2); Mean Corpuscular HGB Conc 33.5 g/dl (32-36); Mean Corpuscular Hemoglobin 30.1 pg (26-34); Mean Corpuscular Volume 89.9 fl (80-100); Mean Platelet Volume 10.1 fl (7.4-10.4); Monocytes Absolute Auto 0.6 K/mm3 (0.1-0.6); Monocytes Percent Auto 12.8 % (2.6-8.5); Neutrophils Absolute Auto 2.1 K/mm3 (1.3-6.7); Neutrophils Percent Auto 42.7 % (45.5-73.1); Platelet Count Result 278 k/mm3 (150-375); Red Blood Count 3.55 M/mm3 (4.6-6.20); Red Cell Distribution Width 12.2 % (11.5-14.5); White Blood Count 4.9 K/mm3 (4.5-10.0)
[2024-03-03 07:11] LABS: Lactic Acid Reflex 1.2 mmol/L (0.7-2.0)
[2024-03-03 07:27] LABS: Anion Gap 3 mmol/L (4-12); Blood Urea Nitrogen 12 mg/dL (9-20); Calcium 8.3 mg/dL (8.4-10.2); Carbon Dioxide 24 mmol/L (22-30); Chloride 110 mmol/L (98-107); Estimated CRCL calculation 119 ml/min; Estimated Glomerular Filt Rate > 60; Glucose 85 mg/dL (65-110); Magnesium 2.2 mg/dL (1.6-2.3); Potassium 4.3 mmol/L (3.4-5.0); Sodium 137 mmol/L (137-145)
--- NOTE | 2024-03-03 07:34 | P.PNIM_ITS ---
Progress Note: A&P Assessment and Plan (1) Venous ulcer: Code(s): I83.009 - Varicose veins of unspecified lower extremity with ulcer of unspecified site; L97.909 - Non-pressure chronic ulcer of unspecified part of unspecified lower leg with unspecified severity Status: Acute (2) Cellulitis: Qualifiers: Laterality: left Site of cellulitis: extremity Site of cellulitis of extremity: lower extremity Qualified Code(s): L03.116 - Cellulitis of left lower limb Code(s): L03.90 - Cellulitis, unspecified Status: Acute (3) Tachycardia: Code(s): R00.0 - Tachycardia, unspecified Status: Acute (4) Lactic acidosis: Code(s): E87.20 - Acidosis, unspecified Status: Acute (5) Autism: Code(s): F84.0 - Autistic disorder Status: Acute (6) Chronic stasis dermatitis: Code(s): I87.2 - Venous insufficiency (chronic) (peripheral) Status: Inactive (7) Lipodermatosclerosis: Code(s): M79.3 - Panniculitis, unspecified Status: Acute Plan A pleasant 38M with autism, levoscoliosis w/ PMH brought in by his mother a retired wound care nurse complaining of worsening infected wound of the left lower extremity - received Keflex, received clindamycin as an outpt. It still has not improved. Redness and swelling and open wound on his right calf are worse, there is large serous drainage as well - lactic acid 5.3 now to 2.9 after 2 L isotonic saline bolus - Doppler ultrasound pending - D-dimer 0.66 and therefore CTA chest was performed- negative for PE. Demonstrated no PE but grossly distended stomach with fluid surrounding the aorta and aberrant right subclavian artery. The patient stands on his feet for 20 hours a day and he even sleeps does legs hanging off the bed. Educated on elevation of legs. Consult Wound Care for venous ulcer. Continue levofloxacin for superimposed infection. Venous Doppler pending. Lactic acidosis is improved, continue to trend. Sinus tachycardia has improved, likely due to lactic acidosis due to infection. Blood cultures pending. -monitor # BED - The patient has an odd eating pattern due to his autism. He will not eat for days and then when he decides to eat he will binge. For instance, today he drink 14 bottles of Ensure. On the CTA of abdomen there is a large fluid-filled stomach with likely local 3rd spacing. Patient is very pleasant but unaware of how to manage his food. Mother reports he has even been making himself vomited few times a week after he ate so much food. They do not have a PCP, advised follow-up and closer management of autism and food intake disorder. Random blood glucose 171 on arrival, hemoglobin A1c 4.9%. Full code Heparin subQ 5000 units b.i.d Wound care consulted Dietitian consulted Anticipate discharge to home. Time Spent With Patient Time with patient: 25 - 35 minutes Subjective Date/time seen: 03/03/24 07:34 Interval history: Narrative: retrieved from h/p 38 y.o male with autism w/ PMH brought in by his mother a retired wound care n [employer] complaining of worsening infected wound of the left lower extremity. On January 22 there was possibly bug bite and since then it appeared infected and received Keflex. A few weeks ago the wound was getting worse so they went to the ER and received clindamycin. It still has not improved. Redness and swelling and open wound on his right calf are worse, there is large serous drainage as well. She has been putting Adaptic on it Patient complains it is somewhat painful. He also has hyperpigmentation of his lower extremities, he stands for 20 hours a day. ER evaluation revealed lactic acid 5.3 now to 2.9 after 2 L isotonic saline bolus. Doppler ultrasound pending. D-dimer 0.66 and therefore CTA chest was performed. Demonstrated no PE but grossly distended stomach with fluid surrounding the aorta and aberrant right subclavian artery. Admitted on 03/02/2024 for failure of outpatient treatment for cellulitis. The patient stands on his feet for 20 hours a day and he even sleeps does legs hanging off the bed. Educated on elevation of legs. The patient has an odd eating pattern due to his autism. He will not eat for days and then when he decides to eat he will binge. They do not have a PCP, advised follow-up and closer management of autism and food intake disorder. Random blood glucose 171 on arrival, hemoglobin A1c 4.9%. 03/03- pt is seen and examined today-mother just left the room- will call to give updates. Sitter at the bedside. PT is alert, reports feeling tired but calm and cooperative. REports that he wants to go home. Mother states that he tried some SSRI in the past for depression but unsure which one and he never tried any CBT or anything for BED. Review of Systems Review of Systems: All systems reviewed & are unremarkable except as noted in HPI and below (subjective) Exam Const: General: comfortable and no acute distress Eyes: Pupils: Equal, round and reactive pupils present Neck: Neck: supple Resp: Effort & Inspection: normal respiratory effort Auscultation: clear to auscultation bilaterally Cardio: Rate: regular rate Rhythm: regular rhythm Heart sounds: no gallops, no murmurs and no rubs Neuro: Cranial nerves: Yes Equal, round and reactive pupils present Extrem: Other: RLE lipodermatosclerosis LLE lipodermatosclerosis, warmth, erythema with sloughing wound dorsum of foot, and large ulcer on posterior calf pedal pulses palpable Objective Data Vital Signs Vital Signs: Vital Signs - 24 hr 03/02/24 14:46 03/02/24 15:00 03/02/24 16:00 Temperature 99.2 F Pulse Rate 135 H 133 H 131 H Respiratory Rate 18 20 20 Blood Pressure 146/100 H 135/86 133/76 Pulse Oximetry 97 100 98 Oxygen Delivery Room Air 03/02/24 17:00 03/02/24 19:15 03/03/24 00:00 Temperature 98.2 F Pulse Rate 118 H 113 H 102 H Respiratory Rate 20 16 Blood Pressure 130/74 133/87 Pulse Oximetry 100 96 Oxygen Delivery 03/03/24 04:00 03/03/24 06:00 Temperature 97 F L Pulse Rate 91 83 Respiratory Rate 16 Blood Pressure 110/54 L Pulse Oximetry 99 Oxygen Delivery Intake/Output Intake/Output: Intake & Output 02/29/24 03/01/24 03/02/24 03/03/24 23:59 23:59 23:59 23:59 Intake Total 2250 325 Balance 2250 325 Meds/Results Medications: Active Medications Generic Name Dose Route Start Last Admin Trade Name Freq PRN Reason Stop Dose Admin Acetaminophen 650 mg 03/02/24 22:45 Acetaminophen 325 Mg Tablet PO Q4H PRN Mild Pain (1-3) or Fever Heparin Sodium (Porcine) 5,000 units 03/03/24 09:00 Heparin Sodium 5,000 Units/Ml Vial SUB-Q Q12HR [facility] Levofloxacin/Dextrose 750 mg in 150 mls @ 100 mls/hr 03/03/24 21:00 Levaquin 750 Mg/D5w 150 Ml IVPB Q24H [facility] Radiology Results: ITS Impressions Chest CTA 03/02/24 18:34 IMPRESSION: 1. No pulmonary embolism or dissection. 2. Grossly distended stomach with fluid surrounding the aorta. 3. Aberrant right subclavian artery. 4. Levoscoliosis. Labs Labs: Laboratory Results - last 24 hr 03/02/24 03/02/24 03/02/24 15:47 17:46 20:39 WBC 5.6 RBC 4.19 L Hgb 12.6 L Hct 37.4 L MCV 89.3 MCH 30.1 MCHC 33.7 RDW 12.2 Plt Count 351 MPV 10.4 Immature Gran % (Auto) 0.2 Neut % (Auto) 66.6 Lymph % (Auto) 13.9 L Bertie % (Auto) 12.1 H Eos % (Auto) 6.0 H Baso % (Auto) 1.2 Lymph # (Auto) 0.78 L Bertie # (Auto) 0.7 H Eos # (Auto) 0.3 Baso # (Auto) 0.1 Abs Immat Gran (auto) 0.01 Absolute Neuts (auto) 3.8 Absolute Nucleated RBC 0.000 Nucleated RBC % 0.0 ESR 53 H D-Dimer 0.66 H Sodium 140 Potassium 4.2 Chloride 96 L Carbon Dioxide 35 H Anion Gap 9 BUN 28 H Creatinine 0.70 Estim Creat Clear Calc 88 Estimated GFR > 60 Glucose 171 H Hemoglobin A1c 4.9 Lactic Acid 5.3 H* 2.9 H Calcium 9.2 Magnesium C-Reactive Protein 1.8 H 03/03/24 06:56 WBC 4.9 RBC 3.55 L Hgb 10.7 L Hct 31.9 L MCV 89.9 MCH 30.1 MCHC 33.5 RDW 12.2 Plt Count 278 MPV 10.1 Immature Gran % (Auto) 0.2 Neut % (Auto) 42.7 L Lymph % (Auto) 29.7 Bertie % (Auto) 12.8 H Eos % (Auto) 13.6 H Baso % (Auto) 1.0 Lymph # (Auto) 1.46 Bertie # (Auto) 0.6 Eos # (Auto) 0.7 H Baso # (Auto) 0.1 Abs Immat Gran (auto) 0.01 Absolute Neuts (auto) 2.1 Absolute Nucleated RBC 0.000 Nucleated RBC % 0.0 ESR D-Dimer Sodium 137 Potassium 4.3 Chloride 110 H Carbon Dioxide 24 Anion Gap 3 L BUN 12 D Creatinine 0.50 L Estim Creat Clear Calc 119 Estimated GFR > 60 Glucose 85 Hemoglobin A1c Lactic Acid 1.2 Calcium 8.3 L Magnesium 2.2 C-Reactive Protein Hospitalist MIPS Advance Care Plan I have confirmed that the patient's Advanced Care Plan is present, code status is documented, or surrogate decision maker is listed in patient medical record.: Yes Medication Reconciliation I have utilized all available resources to obtain, update and review the patients current medications (includes all prescriptions, OTC, herbals, cannabis, and nutritional supplements).: Yes
[2024-03-03] MEDS: HEPARIN SODIUM 5,000 UNITS/ML VIAL 5000 UNITS SUB-Q ×2 (08:28→20:37)
[2024-03-03] MEDS: BETAMETHASONE/CLOTRIMAZOLE CREAM 15 GM TUBE 1 APPLIC TOPICAL ×2 (13:53→21:00)
[2024-03-03] MEDS: levoFLOXacin 750 MG/D5W 150 ML 750 MG/150 ML BAG 100 MG IVPB (20:37)
[2024-03-04] VITALS: PULSE 67
[2024-03-04 04:00] VITALS: PULSE 57
[2024-03-04 05:47] VITALS: BP 104/67; PULSE 84; RESP 16; TEMP 36.9; O2SAT 98
--- NOTE | 2024-03-04 07:39 | PM.IMPN ---
Progress Note: A&P Assessment and Plan (1) Venous ulcer: Code(s): I83.009 - Varicose veins of unspecified lower extremity with ulcer of unspecified site; L97.909 - Non-pressure chronic ulcer of unspecified part of unspecified lower leg with unspecified severity Status: Acute (2) Cellulitis: Qualifiers: Laterality: left Site of cellulitis: extremity Site of cellulitis of extremity: lower extremity Qualified Code(s): L03.116 - Cellulitis of left lower limb Code(s): L03.90 - Cellulitis, unspecified Status: Acute (3) Tachycardia: Code(s): R00.0 - Tachycardia, unspecified Status: Acute (4) Lactic acidosis: Code(s): E87.20 - Acidosis, unspecified Status: Acute (5) Autism: Code(s): F84.0 - Autistic disorder Status: Acute (6) Chronic stasis dermatitis: Code(s): I87.2 - Venous insufficiency (chronic) (peripheral) Status: Inactive (7) Lipodermatosclerosis: Code(s): M79.3 - Panniculitis, unspecified Status: Acute Plan A pleasant 38M with autism, levoscoliosis w/ PMH brought in by his mother a retired wound care nurse complaining of worsening infected wound of the left lower extremity - received Keflex, received clindamycin as an outpt. It still has not improved. Redness and swelling and open wound on his right calf are worse, there is large serous drainage as well - lactic acid 5.3 now to 2.9 after 2 L isotonic saline bolus - Doppler ultrasound pending - D-dimer 0.66 and therefore CTA chest was performed- negative for PE. Demonstrated no PE but grossly distended stomach with fluid surrounding the aorta and aberrant right subclavian artery. The patient stands on his feet for 20 hours a day and he even sleeps does legs hanging off the bed. Educated on elevation of legs. Consult Wound Care for venous ulcer. Continue levofloxacin for superimposed infection. Venous Doppler negative. Lactic acidosis is improved, continue to trend. Sinus tachycardia has improved, likely due to lactic acidosis due to infection. Blood cultures prelim- neg -monitor 03/04- he reports improvement in pain mother at the bedside- updated # BED - The patient has an odd eating pattern due to his autism. He will not eat for days and then when he decides to eat he will binge. For instance, today he drink 14 bottles of Ensure. On the CTA of abdomen there is a large fluid-filled stomach with likely local 3rd spacing. Patient is very pleasant but unaware of how to manage his food. Mother reports he has even been making himself vomited few times a week after he ate so much food. They do not have a PCP, advised follow-up and closer management of autism and food intake disorder. Random blood glucose 171 on arrival, hemoglobin A1c 4.9%. Full code Heparin subQ 5000 units b.i.d Wound care consulted Dietitian consulted Anticipate discharge to home. Time Spent With Patient Time with patient: 25 - 35 minutes Subjective Date/time seen: 03/04/24 07:39 Interval history: Narrative: retrieved from h/p 38 y.o male with autism w/ PMH brought in by his mother a retired wound care nurse complaining of worsening infected wound of the left lower extremity. On January 22 there was possibly bug bite and since then it appeared infected and received Keflex. A few weeks ago the wound was getting worse so they went to the ER and received clindamycin. It still has not improved. Redness and swelling and open wound on his right calf are worse, there is large serous drainage as well. She has been putting Adaptic on it Patient complains it is somewhat painful. He also has hyperpigmentation of his lower extremities, he stands for 20 hours a day. ER evaluation revealed lactic acid 5.3 now to 2.9 after 2 L isotonic saline bolus. Doppler ultrasound pending. D-dimer 0.66 and therefore CTA chest was performed. Demonstrated no PE but grossly distended stomach with fluid surrounding the aorta and aberrant right subclavian artery. Admitted on 03/02/2024 for failure of outpatient treatment for cellulitis. The patient stands on his feet for 20 hours a day and he even sleeps does legs hanging off the bed. Educated on elevation of legs. The patient has an odd eating pattern due to his autism. He will not eat for days and then when he decides to eat he will binge. They do not have a PCP, advised follow-up and closer management of autism and food intake disorder. Random blood glucose 171 on arrival, hemoglobin A1c 4.9%. 03/03- pt is seen and examined today-mother just left the room- will call to give updates. Sitter at the bedside. PT is alert, reports feeling tired but calm and cooperative. REports that he wants to go home. Mother states that he tried some SSRI in the past for depression but unsure which one and he never tried any CBT or anything for BED. 03/04- pt is seen and examined today. Venous Doppler done- NO DVT. Was seen per wound care- yeast cream was added (lotrizone). Pt is to elevate legs when in bed-once able-wear some kind of compression stocking or elena wrapps- and will need vascular follow up and to establish with new pcp. Review of Systems Review of Systems: All systems reviewed & are unremarkable except as noted in HPI and below (subjective) Exam Const: General: comfortable and no acute distress Eyes: Pupils: Equal, round and reactive pupils present Neck: Neck: supple Resp: Effort & Inspection: normal respiratory effort Auscultation: clear to auscultation bilaterally Cardio: Rate: regular rate Rhythm: regular rhythm Heart sounds: no gallops, no murmurs and no rubs Neuro: Cranial nerves: Yes Equal, round and reactive pupils present Extrem: Other: RLE lipodermatosclerosis LLE lipodermatosclerosis, warmth, erythema with sloughing wound dorsum of foot, and large ulcer on posterior calf pedal pulses palpable Objective Data Vital Signs Vital Signs: Vital Signs - 24 hr 03/03/24 08:00 03/03/24 12:00 03/03/24 14:00 Temperature 98.2 F Pulse Rate 65 72 77 Respiratory Rate 16 Blood Pressure 102/64 Pulse Oximetry 100 03/03/24 16:00 03/03/24 21:35 03/03/24 20:00 Temperature 97.8 F Pulse Rate 72 56 L 76 Respiratory Rate 14 Blood Pressure 107/58 L Pulse Oximetry 100 03/04/24 00:00 03/04/24 05:47 03/04/24 04:00 Temperature 98.5 F Pulse Rate 67 84 57 L Respiratory Rate 16 Blood Pressure 104/67 Pulse Oximetry 98 Intake/Output Intake/Output: Intake & Output 03/01/24 03/02/24 03/03/24 03/04/24 23:59 23:59 23:59 23:59 Intake Total 2250 875 Balance 2250 875 Meds/Results Medications: Active Medications Generic Name Dose Route Start Last Admin Trade Name Freq PRN Reason Stop Dose Admin Acetaminophen 650 mg 03/02/24 22:45 Acetaminophen 325 Mg Tablet PO Q4H PRN Mild Pain (1-3) or Fever Clotrimazole 1 applic 03/03/24 10:00 03/03/24 21:00 Betamethasone/Clotrimazole Cream 15 Gm Tube TOPICAL 1 applic Q12HR [facility] Administration Heparin Sodium (Porcine) 5,000 units 03/03/24 09:00 03/03/24 20:37 Heparin Sodium 5,000 Units/Ml Vial SUB-Q 5,000 units Q12HR [facility] Administration Levofloxacin/Dextrose 750 mg in 150 mls @ 100 mls/hr 03/03/24 21:00 03/03/24 22:07 Levaquin 750 Mg/D5w 150 Ml IVPB Infused Q24H [facility] Infusion Radiology Results: ITS Impressions Chest CTA 03/02/24 18:34 IMPRESSION: 1. No pulmonary embolism or dissection. 2. Grossly distended stomach with fluid surrounding the aorta. 3. Aberrant right subclavian artery. 4. Levoscoliosis. Venous Doppler Study 03/03/24 11:16 IMPRESSION: 1. No deep venous thrombosis.
[2024-03-04] MEDS: BETAMETHASONE/CLOTRIMAZOLE CREAM 15 GM TUBE 1 APPLIC TOPICAL ×2 (09:18→20:25)
[2024-03-04] MEDS: HEPARIN SODIUM 5,000 UNITS/ML VIAL 5000 UNITS SUB-Q ×2 (09:19→20:24)
[2024-03-04 14:00] VITALS: BP 101/87; PULSE 71; RESP 20; TEMP 36.4; O2SAT 100
[2024-03-04 20:00] VITALS: O2SAT 100
[2024-03-04] MEDS: levoFLOXacin 750 MG/D5W 150 ML 750 MG/150 ML BAG 100 MG IVPB (20:23)
[2024-03-04 22:00] VITALS: BP 107/56; PULSE 82; RESP 20; TEMP 36.3; O2SAT 100
[2024-03-05] VITALS (8 sets, daily range): BP systolic 104–119; BP diastolic 59–74; PULSE 61–136; RESP 16–20; TEMP 36.2–36.9; O2SAT 96–100
--- NOTE | 2024-03-05 08:22 | PM.IMPN ---
Progress Note: A&P Assessment and Plan (1) Venous ulcer: Code(s): I83.009 - Varicose veins of unspecified lower extremity with ulcer of unspecified site; L97.909 - Non-pressure chronic ulcer of unspecified part of unspecified lower leg with unspecified severity Status: Acute (2) Cellulitis: Qualifiers: Laterality: left Site of cellulitis: extremity Site of cellulitis of extremity: lower extremity Qualified Code(s): L03.116 - Cellulitis of left lower limb Code(s): L03.90 - Cellulitis, unspecified Status: Acute (3) Tachycardia: Code(s): R00.0 - Tachycardia, unspecified Status: Acute (4) Lactic acidosis: Code(s): E87.20 - Acidosis, unspecified Status: Acute (5) Autism: Code(s): F84.0 - Autistic disorder Status: Acute (6) Chronic stasis dermatitis: Code(s): I87.2 - Venous insufficiency (chronic) (peripheral) Status: Inactive (7) Lipodermatosclerosis: Code(s): M79.3 - Panniculitis, unspecified Status: Acute Plan A pleasant 38M with autism, levoscoliosis w/ PMH brought in by his mother a retired wound care nurse complaining of worsening infected wound of the left lower extremity - received Keflex, received clindamycin as an outpt. It still has not improved. Redness and swelling and open wound on his right calf are worse, there is large serous drainage as well - lactic acid 5.3 now to 2.9 after 2 L isotonic saline bolus - Doppler ultrasound pending - D-dimer 0.66 and therefore CTA chest was performed- negative for PE. Demonstrated no PE but grossly distended stomach with fluid surrounding the aorta and aberrant right subclavian artery. The patient stands on his feet for 20 hours a day and he even sleeps does legs hanging off the bed. Educated on elevation of legs. Consult Wound Care for venous ulcer. Continue levofloxacin for superimposed infection. Venous Doppler negative. Lactic acidosis is improved, continue to trend. Sinus tachycardia has improved, likely due to lactic acidosis due to infection. Blood cultures prelim- neg -monitor 03/04- he reports improvement in pain mother at the bedside- updated 03/05- day 3 of Levofloxatine - anticipate switching to PO and anticipate discharge home if at least 50% of improvement achieved. NO purulent drainage. Noted some sloughing- continue with elevation and avoiding prolonged standing. # BED - The patient has an odd eating pattern due to his autism. He will not eat for days and then when he decides to eat he will binge. For instance, today he drink 14 bottles of Ensure. On the CTA of abdomen there is a large fluid-filled stomach with likely local 3rd spacing. Patient is very pleasant but unaware of how to manage his food. Mother reports he has even been making himself vomited few times a week after he ate so much food. They do not have a PCP, advised follow-up and closer management of autism and food intake disorder. Random blood glucose 171 on arrival, hemoglobin A1c 4.9%. - will start with ssri- ordered fluoxetine 20 mg now and monitor - will need close f/u with PCP and psychiatrist for monitoring and CBT - he will need a supervised meals and no extra food available while here Full code Heparin subQ 5000 units b.i.d Wound care consulted Dietitian consulted Anticipate discharge to home. Time Spent With Patient Time with patient: 25 - 35 minutes Subjective Date/time seen: 03/05/24 08:22 Interval history: Narrative: retrieved from h/p 38 y.o male with autism w/ PMH brought in by his mother a retired wound care nurse complaining of worsening infected wound of the left lower extremity. On January 22 there was possibly bug bite and since then it appeared infected and received Keflex. A few weeks ago the wound was getting worse so they went to the ER and received clindamycin. It still has not improved. Redness and swelling and open wound on his right calf are worse, there is large serous drainage as well. She has been putting Adaptic on it Patient complains it is somewhat painful. He also has hyperpigmentation of his lower extremities, he stands for 20 hours a day. ER evaluation revealed lactic acid 5.3 now to 2.9 after 2 L isotonic saline bolus. Doppler ultrasound pending. D-dimer 0.66 and therefore CTA chest was performed. Demonstrated no PE but grossly distended stomach with fluid surrounding the aorta and aberrant right subclavian artery. Admitted on 03/02/2024 for failure of outpatient treatment for cellulitis. The patient stands on his feet for 20 hours a day and he even sleeps does legs hanging off the bed. Educated on elevation of legs. The patient has an odd eating pattern due to his autism. He will not eat for days and then when he decides to eat he will binge. They do not have a PCP, advised follow-up and closer management of autism and food intake disorder. Random blood glucose 171 on arrival, hemoglobin A1c 4.9%. 03/03- pt is seen and examined today-mother just left the room- will call to give updates. Sitter at the bedside. PT is alert, reports feeling tired but calm and cooperative. REports that he wants to go home. Mother states that he tried some SSRI in the past for depression but unsure which one and he never tried any CBT or anything for BED. 03/04- pt is seen and examined today. Venous Doppler done- NO DVT. Was seen per wound care- yeast cream was added (lotrizone). Pt is to elevate legs when in bed-once able-wear some kind of compression stocking or elena wraps- and will need vascular follow up and to establish with new pcp. 03/05- seen at the bedside. Continue to see improvement in erythema and pain. Today is day 3 of IV antibiotics- will consider switching to PO tomorrow and anticipate discharge with PO doses to complete the course. Pt had an episode of binge eating last night and again today-discussed it with his Mother- we will try SSRI while here- will start with fluoxetine daily and he would need CBT and close f/u once discharged with PCP and psychiatrist. Review of Systems Review of Systems: All systems reviewed & are unremarkable except as noted in HPI and below (subjective) Exam Const: General: comfortable and no acute distress Eyes: Pupils: Equal, round and reactive pupils present Neck: Neck: supple Resp: Effort & Inspection: normal respiratory effort Auscultation: clear to auscultation bilaterally Cardio: Rate: regular rate Rhythm: regular rhythm Heart sounds: no gallops, no murmurs and no rubs Neuro: Cranial nerves: Yes Equal, round and reactive pupils present Extrem: Other: RLE lipodermatosclerosis LLE lipodermatosclerosis, warmth, erythema with sloughing wound dorsum of foot, and large ulcer on posterior calf pedal pulses palpable Objective Data Vital Signs Vital Signs: Vital Signs - 24 hr 03/04/24 14:00 03/04/24 20:00 03/04/24 22:00 Temperature 97.6 F 97.4 F L Pulse Rate 71 82 Respiratory Rate 20 20 Blood Pressure 101/87 107/56 L Pulse Oximetry 100 100 100 Oxygen Delivery Room Air 03/05/24 00:00 03/05/24 04:00 03/05/24 06:00 Temperature 97.2 F L Pulse Rate 87 93 80 Respiratory Rate 20 Blood Pressure 104/59 L Pulse Oximetry 100 Oxygen Delivery 03/05/24 08:00 Temperature Pulse Rate 61 Respiratory Rate Blood Pressure Pulse Oximetry Oxygen Delivery Intake/Output Intake/Output: Intake & Output 03/02/24 03/03/24 03/04/24 03/05/24 23:59 23:59 23:59 23:59 Intake Total 2250 875 150 Output Total 900 Balance 2250 875 -750 Meds/Results Medications: Active Medications Generic Name Dose Route Start Last Admin Trade Name Freq PRN Reason Stop Dose Admin Acetaminophen 650 mg 03/02/24 22:45 Acetaminophen 325 Mg Tablet PO Q4H PRN Mild Pain (1-3) or Fever Clotrimazole 1 applic 03/03/24 10:00 03/04/24 20:25 Betamethasone/Clotrimazole Cream 15 Gm Tube TOPICAL 1 applic Q12HR EDUARDO Administration Heparin Sodium (Porcine) 5,000 units 03/03/24 09:00 03/04/24 20:24 Heparin Sodium 5,000 Units/Ml Vial SUB-Q 5,000 units Q12HR EDUARDO Administration Levofloxacin/Dextrose 750 mg in 150 mls @ 100 mls/hr 03/03/24 21:00 03/04/24 21:53 Levaquin 750 Mg/D5w 150 Ml IVPB Infused Q24H EDUARDO Infusion Radiology Results: ITS Impressions Chest CTA 03/02/24 18:34 IMPRESSION: 1. No pulmonary embolism or dissection. 2. Grossly distended stomach with fluid surrounding the aorta. 3. Aberrant right subclavian artery. 4. Levoscoliosis. Venous Doppler Study 03/03/24 11:16 IMPRESSION: 1. No deep venous thrombosis.
[2024-03-05] MEDS: HEPARIN SODIUM 5,000 UNITS/ML VIAL 5000 UNITS SUB-Q ×2 (13:00→20:15)
[2024-03-05] MEDS: BETAMETHASONE/CLOTRIMAZOLE CREAM 15 GM TUBE 1 APPLIC TOPICAL ×2 (14:45→20:16)
[2024-03-05] MEDS: FLUoxetine HCL 20 MG CAPSULE PO (14:46)
[2024-03-05] MEDS: levoFLOXacin 750 MG/D5W 150 ML 750 MG/150 ML BAG 100 MG IVPB (20:16)
[2024-03-06] VITALS: PULSE 135
[2024-03-06 04:00] VITALS: PULSE 89
[2024-03-06 05:31] VITALS: BP 104/51; PULSE 103; RESP 12; TEMP 36.3; O2SAT 97
--- NOTE | 2024-03-06 07:54 | P.PNIM_ITS ---
Progress Note: A&P Assessment and Plan (1) Venous ulcer: Code(s): I83.009 - Varicose veins of unspecified lower extremity with ulcer of unspecified site; L97.909 - Non-pressure chronic ulcer of unspecified part of unspecified lower leg with unspecified severity Status: Acute (2) Cellulitis: Qualifiers: Laterality: left Site of cellulitis: extremity Site of cellulitis of extremity: lower extremity Qualified Code(s): L03.116 - Cellulitis of left lower limb Code(s): L03.90 - Cellulitis, unspecified Status: Acute (3) Tachycardia: Code(s): R00.0 - Tachycardia, unspecified Status: Acute (4) Lactic acidosis: Code(s): E87.20 - Acidosis, unspecified Status: Acute (5) Autism: Code(s): F84.0 - Autistic disorder Status: Acute (6) Chronic stasis dermatitis: Code(s): I87.2 - Venous insufficiency (chronic) (peripheral) Status: Inactive (7) Lipodermatosclerosis: Code(s): M79.3 - Panniculitis, unspecified Status: Acute Plan A pleasant 38M with autism, levoscoliosis w/ PMH brought in by his mother a retired wound care nurse complaining of worsening infected wound of the left lower extremity - received Keflex, received clindamycin as an outpt. It still has not improved. Redness and swelling and open wound on his right calf are worse, there is large serous drainage as well - lactic acid 5.3 now to 2.9 after 2 L isotonic saline bolus - Doppler ultrasound pending - D-dimer 0.66 and therefore CTA chest was performed- negative for PE. Demonstrated no PE but grossly distended stomach with fluid surrounding the aorta and aberrant right subclavian artery. The patient stands on his feet for 20 hours a day and he even sleeps does legs hanging off the bed. Educated on elevation of legs. Consult Wound Care for venous ulcer. Continue levofloxacin for superimposed infection. Venous Doppler negative. Lactic acidosis is improved, continue to trend. Sinus tachycardia has improved, likely due to lactic acidosis due to infection. Blood cultures prelim- neg -monitor 03/04- he reports improvement in pain mother at the bedside- updated 03/05- day 3 of Levofloxatine - anticipate switching to PO and anticipate discharge home if at least 50% of improvement achieved. NO purulent drainage. Noted some sloughing- continue with elevation and avoiding prolonged standing. # BED - The patient has an odd eating pattern due to his autism. He will not eat for days and then when he decides to eat he will binge. For instance, today he drink 14 bottles of Ensure. On the CTA of abdomen there is a large fluid-filled stomach with likely local 3rd spacing. Patient is very pleasant but unaware of how to manage his food. Mother reports he has even been making himself vomited few times a week after he ate so much food. They do not have a PCP, advised follow-up and closer management of autism and food intake disorder. Random blood glucose 171 on arrival, hemoglobin A1c 4.9%. - will start with ssri- ordered fluoxetine 20 mg now and monitor - will need close f/u with PCP and psychiatrist for monitoring and CBT - he will need a supervised meals and no extra food available while here Full code Heparin subQ 5000 units b.i.d Wound care consulted Dietitian consulted Anticipate discharge to home. Time Spent With Patient Time with patient: 25 - 35 minutes Subjective Date/time seen: 03/06/24 07:54 Interval history: Narrative: retrieved from h/p 38 y.o male with autism w/ PMH brought in by his mother a retired wound care nurse complaining of worsening infected wound of the left lower extremity. On January 22 there was possibly bug bite and since then it appeared infected and received Keflex. A few weeks ago the wound was getting worse so they went to the ER and received clindamycin. It still has not improved. Redness and swelling and open wound on his right calf are worse, there is large serous drainage as well. She has been putting Adaptic on it Patient complains it is somewhat painful. He also has hyperpigmentation of his lower extremities, he stands for 20 hours a day. ER evaluation revealed lactic acid 5.3 now to 2.9 after 2 L isotonic saline bolus. Doppler ultrasound pending. D-dimer 0.66 and therefore CTA chest was performed. Demonstrated no PE but grossly distended stomach with fluid surrounding the aorta and aberrant right subclavian artery. Admitted on 03/02/2024 for failure of outpatient treatment for cellulitis. The patient stands on his feet for 20 hours a day and he even sleeps does legs hanging off the bed. Educated on elevation of legs. The patient has an odd eating pattern due to his autism. He will not eat for days and then when he decides to eat he will binge. They do not have a PCP, advised follow-up and closer management of autism and food intake disorder. Random blood glucose 171 on arrival, hemoglobin A1c 4.9%. 03/03- pt is seen and examined today-mother just left the room- will call to give updates. Sitter at the bedside. PT is alert, reports feeling tired but calm and cooperative. REports that he wants to go home. Mother states that he tried some SSRI in the past for depression but unsure which one and he never tried any CBT or anything for BED. 03/04- pt is seen and examined today. Venous Doppler done- NO DVT. Was seen per wound care- yeast cream was added (lotrizone). Pt is to elevate legs when in bed-once able-wear some kind of compression stocking or elena wraps- and will need vascular follow up and to establish with new pcp. 03/05- seen at the bedside. Continue to see improvement in erythema and pain. Today is day 3 of IV antibiotics- will consider switching to PO tomorrow and anticipate discharge with PO doses to complete the course. Pt had an episode of binge eating last night and again today-discussed it with his Mother- we will try SSRI while here- will start with fluoxetine daily and he would need CBT and close f/u once discharged with PCP and psychiatrist. 03/06- Will switch antibiotics to PO- may consider wound snf health if needed. Review of Systems Review of Systems: All systems reviewed & are unremarkable except as noted in HPI and below (subjective) Exam Const: General: comfortable and no acute distress Eyes: Pupils: Equal, round and reactive pupils present Neck: Neck: supple Resp: Effort & Inspection: normal respiratory effort Auscultation: clear to auscultation bilaterally Cardio: Rate: regular rate Rhythm: regular rhythm Heart sounds: no gal lops, no murmurs and no rubs Neuro: Cranial nerves: Yes Equal, round and reactive pupils present Extrem: Other: RLE lipodermatosclerosis LLE lipodermatosclerosis, warmth, erythema with sloughing wound dorsum of foot, and large ulcer on posterior calf pedal pulses palpable Objective Data Vital Signs Vital Signs: Vital Signs - 24 hr 03/05/24 08:00 03/05/24 08:00 03/05/24 12:00 Temperature Pulse Rate 61 61 66 Respiratory Rate 20 Blood Pressure Pulse Oximetry 100 Oxygen Delivery Room Air 03/05/24 14:00 03/05/24 21:11 03/05/24 20:00 Temperature 97.7 F 98.4 F Pulse Rate 78 117 H 113 H Respiratory Rate 20 16 18 Blood Pressure 119/74 113/64 Pulse Oximetry 96 97 98 Oxygen Delivery Room Air 03/05/24 20:00 03/06/24 00:00 03/06/24 04:00 Temperature Pulse Rate 136 H 135 H 89 Respiratory Rate Blood Pressure Pulse Oximetry Oxygen Delivery 03/06/24 05:31 Temperature 97.4 F L Pulse Rate 103 H Respiratory Rate 12 Blood Pressure 104/51 L Pulse Oximetry 97 Oxygen Delivery Intake/Output Intake/Output: Intake & Output 03/03/24 03/04/24 03/05/24 03/06/24 23:59 23:59 23:59 23:59 Intake Total 690 067 0139 1000 Output Total 900 600 Balance 875 -750 2040 1000 Meds/Results Medications: Active Medications Generic Name Dose Route Start Last Admin Trade Name Freq PRN Reason Stop Dose Admin Acetaminophen 650 mg 03/02/24 22:45 Acetaminophen 325 Mg Tablet PO Q4H PRN Mild Pain (1-3) or Fever Clotrimazole 1 applic 03/03/24 10:00 03/05/24 20:16 Betamethasone/Clotrimazole Cream 15 Gm Tube TOPICAL 1 applic Q12HR EDUARDO Administration Fluoxetine HCl 20 mg 03/05/24 14:30 03/05/24 14:46 Fluoxetine Hcl 20 Mg Capsule PO 20 mg DAILY EDUARDO Administration Heparin Sodium (Porcine) 5,000 units 03/03/24 09:00 03/05/24 20:15 Heparin Sodium 5,000 Units/Ml Vial SUB-Q 5,000 units Q12HR EDUARDO Administration Levofloxacin/Dextrose 750 mg in 150 mls @ 100 mls/hr 03/03/24 21:00 03/05/24 20:16 Levaquin 750 Mg/D5w 150 Ml IVPB 100 mls/hr Q24H EDUARDO Administration Radiology Results: ITS Impressions Chest CTA 03/02/24 18:34 IMPRESSION: 1. No pulmonary embolism or dissection. 2. Grossly distended stomach with fluid surrounding the aorta. 3. Aberrant right subclavian artery. 4. Levoscoliosis. Venous Doppler Study 03/03/24 11:16 IMPRESSION: 1. No deep venous thrombosis.
[2024-03-06 08:00] VITALS: PULSE 73
[2024-03-06] MEDS: BETAMETHASONE/CLOTRIMAZOLE CREAM 15 GM TUBE 1 APPLIC TOPICAL (09:49)
[2024-03-06] MEDS: HEPARIN SODIUM 5,000 UNITS/ML VIAL 5000 UNITS SUB-Q (09:51)
[2024-03-06 12:00] VITALS: PULSE 75
--- NOTE | 2024-03-06 13:22 | P.DS_ITS ---
DS: Admitting Diagnosis Discharge Date 03/06 Admitting Diagnosis infected leg wound DS: Discharge Diagnosis Discharge Diagnosis (1) Venous ulcer: Code(s): I83.009 - Varicose veins of unspecified lower extremity with ulcer of unspecified site; L97.909 - Non-pressure chronic ulcer of unspecified part of unspecified lower leg with unspecified severity Status: Acute (2) Cellulitis: Qualifiers: Laterality: left Site of cellulitis: extremity Site of cellulitis of extremity: lower extremity Qualified Code(s): L03.116 - Cellulitis of left lower limb Code(s): L03.90 - Cellulitis, unspecified Status: Acute (3) Tachycardia: Code(s): R00.0 - Tachycardia, unspecified Status: Acute (4) Lactic acidosis: Code(s): E87.20 - Acidosis, unspecified Status: Acute (5) Autism: Code(s): F84.0 - Autistic disorder Status: Acute (6) Chronic stasis dermatitis: Code(s): I87.2 - Venous insufficiency (chronic) (peripheral) Status: Inactive (7) Lipodermatosclerosis: Code(s): M79.3 - Panniculitis, unspecified Status: Acute Plan FINAL DX: stasis dermatitis, CELLULITIS A pleasant 38M with autism, levoscoliosis w/ PMH brought in by his mother a retired wound care nurse complaining of worsening infected wound of the left lower extremity - received Keflex, received clindamycin as an outpt. It still has not improved. Redness and swelling and open wound on his right calf are worse, there is large serous drainage as well - lactic acid 5.3 now to 2.9 after 2 L isotonic saline bolus - Doppler ultrasound pending - D-dimer 0.66 and therefore CTA chest was performed- negative for PE. Demonstrated no PE but grossly distended stomach with fluid surrounding the aorta and aberrant right subclavian artery. The patient stands on his feet for 20 hours a day and he even sleeps does legs hanging off the bed. Educated on elevation of legs. Consult Wound Care for venous ulcer. Continue levofloxacin for superimposed infection. Venous Doppler negative. Lactic acidosis is improved, continue to trend. Sinus tachycardia has improved, likely due to lactic acidosis due to infection. Blood cultures prelim- neg -monitor 03/04- he reports improvement in pain mother at the bedside- updated 03/05- day 3 of Levofloxatine - anticipate switching to PO and anticipate discharge home if at least 50% of improvement achieved. NO purulent drainage. Noted some sloughing- continue with elevation and avoiding prolonged standing. # BED - The patient has an odd eating pattern due to his autism. He will not eat for days and then when he decides to eat he will binge. For instance, today he drink 14 bottles of Ensure. On the CTA of abdomen there is a large fluid-filled stomach with likely local 3rd spacing. Patient is very pleasant but unaware of how to manage his food. Mother reports he has even been making himself vomited few times a week after he ate so much food. They do not have a PCP, advised follow-up and closer management of autism and food intake disorder. Random blood glucose 171 on arrival, hemoglobin A1c 4.9%. - will start with ssri- ordered fluoxetine 20 mg now and monitor - will need close f/u with PCP and psychiatrist for monitoring and CBT - he will need a supervised meals and no extra food available while here Full code Heparin subQ 5000 units b.i.d Wound care consulted Dietitian consulted Anticipate discharge to home. DS: Summary Hospital Course Hospital Course: 38 y.o male with autism w/ PMH brought in by his mother a retired wound care nurse complaining of worsening infected wound of the left lower extremity. On January 22 there was possibly bug bite and since then it appeared infected and received Keflex. A few weeks ago the wound was getting worse so they went to the ER and received clindamycin. It still has not improved. Redness and swelling and open wound on his right calf are worse, there is large serous drainage as well. She has been putting Adaptic on it Patient complains it is somewhat painful. He also has hyperpigmentation of his lower extremities, he stands for 20 hours a day. ER evaluation revealed lactic acid 5.3 now to 2.9 after 2 L isotonic saline bolus. Doppler ultrasound pending. D-dimer 0.66 and therefore CTA chest was performed. Demonstrated no PE but grossly distended stomach with fluid surrounding the aorta and aberrant right subclavian artery. Admitted on 03/02/2024 for failure of outpatient treatment for cellulitis. The patient stands on his feet for 20 hours a day and he even sleeps does legs hanging off the bed. Educated on elevation of legs. The patient has an odd eating pattern due to his autism. He will not eat for days and then when he decides to eat he will binge. They do not have a PCP, advised follow-up and closer management of autism and food intake disorder. Random blood glucose 171 on arrival, hemoglobin A1c 4.9%. 03/03- pt is seen and examined today-mother just left the room- will call to give updates. Sitter at the bedside. PT is alert, reports feeling tired but calm and cooperative. REports that he wants to go home. Mother states that he tried some SSRI in the past for depression but unsure which one and he never tried any CBT or anything for BED. 03/04- pt is seen and examined today. Venous Doppler done- NO DVT. Was seen per wound care- yeast cream was added (lotrizone). Pt is to elevate legs when in bed-once able-wear some kind of compression stocking or elena wraps- and will need vascular follow up and to establish with new pcp. 03/05- seen at the bedside. Continue to see improvement in erythema and pain. Today is day 3 of IV antibiotics- will consider switching to PO tomorrow and anticipate discharge with PO doses to complete the course. Pt had an episode of binge eating last night and again today-discussed it with his Mother- we will try SSRI while here- will start with fluoxetine daily and he would need CBT and close f/u once discharged with PCP and psychiatrist. Status at Discharge Functional status at discharge: independent ambulation Overall status at discharge: patient is back to baseline Time Spent with Patient Time attestation: Total time spent providing and/or coordinating discharge services: Time spent: Less than 30 minutes Exam Const: General: comfortable and no acute distress Eyes: Pupils: Equal, round and reactive pupils present Neck: Neck: supple Resp: Effort & Inspection: normal respiratory effort Auscultation: clear to auscultation bilaterally Cardio: Rate: regular rate Rhythm: regular rhythm Heart sounds: no gallops, no murmurs and no rubs Neuro: Cranial nerves: Yes Equal, round and reactive pupils present Extrem: Other: RLE lipodermatosclerosis LLE lipodermatosclerosis, warmth, erythema with sloughing wound dorsum of foot, and large ulcer on posterior calf erythema improved pedal pulses palpable DS: Data Data Completed and Pending Completed studies during hospitalization: none Labs on day of discharge: Preliminary micro results at discharge 03/02/24 15:47 Blood Culture - Preliminary Blood 03/02/24 15:52 Blood Culture - Preliminary Blood Discharge Plan Discharge Discharging Clinician: Angela Smith Patient Disposition: Home, Self-Care Activity: may shower Diet: as tolerated Discharge Instructions: Per Care Coordination: [facility] ([phone]) will call to set up initial visit. please finish Levaquin doses- i will send you 4 more doses to take once a day. Continue Prozac daily for binge eating disorder and please follow up with PCP and/or psychiatrist to establish care and monitor this. As we discussed, he might not need it snf- but he will definitely need some follow up as well as cognitive behavioral therapy. Please don't let the legs dangle off the bed for too long- elevate them on pillow and wear compression stockings if able to tolerate it. Patient Instructions: Antibiotic Form Stand Alone Forms: General Discharge Information Follow-up/Referrals: Jasmin,Mark Anthony Stevenson MD [Primary Care Provider] - 1 Week (please f/u with your pcp within 1 week) Discharge Medications: New fluoxetine 20 mg Tablet 20 mg PO DAILY Qty: 60 0RF levofloxacin 750 mg tablet 750 mg PO DAILY Qty: 4 0RF clotrimazole-betamethasone 1-0.05 % cream 1 applic topical BID Qty: 45 0RF No Action No Home Medications Date of admission: 03/04/24 11:40 Primary Care Provider: JasminMark Anthony Admitting Provider: Janes Lepe Attending physician on admission: Janes Lepe Condition: Stable Hospitalist MIPS Heart Failure (Exclusion) Patient has history of Heart Transplant or Left Ventricular Assistive Device?: No IF YES, STOP HERE Heart Failure (Qualifier) Patient has current or prior documentation of LVEF less than or equal to 40%, or mod/servere depressed LVSF?: No IF NO, STOP HERE
[2024-03-06] MEDS: levoFLOXacin 750 MG TABLET PO (13:39)
[2024-03-06 14:00] VITALS: BP 129/96; PULSE 87; RESP 14; TEMP 36.8; O2SAT 100
== END 2024-03-06 15:00 | disposition home or self-care (01) | DRG 603 ==
LOC: ANHED 18:37 → ANH3MEDSUR 18:37
PROVIDERS: General Practice; Admitting Provider Internal Medicine; Emergency Provider Physician Assistant; PCP Internal Medicine; Visit Provider Internal Medicine
DX: L03.116 Cellulitis of left lower limb (principal); F84.0 Autistic disorder; E87.20 Acidosis, unspecified; I83.225 Varicose veins of left lower extremity with both ulcer other part of foot and inflammation; L97.529 Non-pressure chronic ulcer of other part of left foot with unspecified severity; M41.9 Scoliosis, unspecified; M79.3 Panniculitis, unspecified; R00.0 Tachycardia, unspecified; Z88.0 Allergy status to penicillin
CPT/HCPCS: 36415; 71275; 80048; 83036; 83605; 83735; 85025; 85380; 85652; 86140; 87040; 93971; 96361; 96365; 99285; A9270; G0378; J1644; J1836; J1956; J7030; Q9967